=== PATIENT | female | born 1955 | race African-American/Black ===

== ENCOUNTER 2017-11-03 15:53 | Emergency (ER) | payer MEDICAID, OTHER ==
[~2017-11-03] VITALS: Ht 175.3 cm; Wt 113.0 kg
[2017-11-03 17:16] VITALS: BP 152/83
[2017-11-03] MEDS ORDERED: SITA100T11 PO (17:23)
[2017-11-03] MEDS ORDERED: ATEN50TA PO (17:23)
[2017-11-03] MEDS ORDERED: ATOR40TA70 PO (17:23)
[2017-11-03] MEDS ORDERED: LISI10TA5 PO (17:23)
== END 2017-11-03 19:55 | disposition left against medical advice (07) ==
LOC: ER 16:39
DX: Z53.21 Procedure and treatment not carried out due to patient leaving prior to being seen by health care provider (principal); E11.9 Type 2 diabetes mellitus without complications
CPT/HCPCS: 82962